=== PATIENT | male | born 1970 | race Caucasian/White ===

== ENCOUNTER → 2017-03-16 | Outpatient (CLI) | payer BC ==
[~2017-03-16] MED LIST: ASPIRIN81 M2 PO; FISH OIL 1,2001 EAC1 PO; MULTI VITAMIN1 EACH PO; VITAMIN C500 M1 PO; VITAMIN D5000 UNIT PO; ZESTRIL5 MG PO
[2017-03-16 08:34] LABS: HEMATOCRIT 50.9 % (38.0-50.0); HEMOGLOBIN 16.9 gm/dL (13.0-16.0); MEAN CELL VOLUME 88.5 FL (83-96); MEAN CORPUSCULAR HEMOGLOBIN 29.5 PG (28-34); MEAN CORPUSCULAR HGB CONC 33.3 g/dL (30-36); MEAN PLATELET VOLUME 8.4 FL (6.5-11.5); RED BLOOD COUNT 5.75 X10e (3.90-5.60); RED CELL DISTRIBUTION WIDTH 14.1 % (11.0-15.5); WHITE BLOOD COUNT 6.8 X10e3 (4.0-10.5)
[2017-03-16 08:56] LABS: TESTOSTERONE TOTAL 321.86 ng/dL (17-781)
[2017-03-16 09:05] LABS: PROSTATE SPECIFIC AG SCR <0.02 ng/ml (0.0-4.0)
[2017-03-16 09:45] LABS: ALBUMIN SERUM 4.5 g/dL (3.5-5.0); ALKALINE PHOSPHATASE 72 U/L (32-92); ALT (SGPT) 39 U/L (10-40); AST (SGOT) 34 U/L (10-42); BILIRUBIN,TOTAL 1.1 mg/dL (0.2-2.0); BLOOD UREA NITROGEN 16 mg/dL (9-23); CALCIUM SERUM 9.3 mg/dL (8.4-10.2); CARBON DIOXIDE 28 mmol/L (22-31); CHLORIDE 100 mmol/L (100-111); GLOM FILT RATE Estimated 89.2 mL/min (>60); GLUCOSE FASTING 124 mg/dL (70-110); POTASSIUM 4.8 mmol/L (3.5-5.1); PROTEIN TOTAL SERUM 7.5 g/dL (6.0-8.3); SODIUM 135 mmol/L (135-145)
== END | disposition home or self-care (01) ==
LOC: CLAB 07:29
PROVIDERS: Urology
DX: E29.1 Testicular hypofunction (principal)
CPT/HCPCS: 36415; 80053; 84403; 85027; G0103